=== PATIENT | female | born 1970 | race Two or more races ===

== ENCOUNTER 2022-06-16 13:27 | Emergency (ER) | payer OTHER ==
[~2022-06-16] VITALS: Ht 162.6 cm; Wt 92.5 kg
[2022-06-16] MEDS ORDERED: ZIAC 5-6.25 MG1 EACH (14:29)
== END 2022-06-16 16:48 | disposition home or self-care (01) ==
LOC: ER 13:27 → EDBD 13:32 → ER 13:32
DX: I10 Essential (primary) hypertension (principal)

== ENCOUNTER 2024-09-27 20:46 | Emergency (ER) | payer OTHER ==
[~2024-09-27] VITALS: Ht 165.1 cm; Wt 63.5 kg
[~2024-09-27 20:46] MED LIST: ZIAC 5-6.25 MG1 EACH
[2024-09-28] MEDS ORDERED: ORPHENADRINE CITRATE 30 MG/ML AMPUL IM STA (02:01)
[2024-09-28] MEDS ORDERED: KETOROLAC TROMETHAMINE 30 MG VIAL IV STA (02:01)
[2024-09-28] MEDS ORDERED: KETOROLAC TROMETHAMINE 30 MG VIAL ONE (02:04)
[2024-09-28] MEDS ORDERED: ORPHENADRINE CITRATE 30 MG/ML AMPUL ONE (02:04)
[2024-09-28 02:45] LABS: BASO % 0.3 % (0.1-1.2); EOS # 0.13 (0.04-0.54); EOS % 1.1 % (0.7-7.0); HEMATOCRIT 41.2 % (34.1-44.9); HEMOGLOBIN 14.3 g/dL (11.2-15.7); LYMPH # 3.06 (1.18-3.74); LYMPH % 26.4 % (19.3-53.1); MEAN CORPUSCULAR HEMOGLOBIN 32.4 pg (25.6-32.2); MONO # 0.73 (0.24-0.82); MONO % 6.3 % (4.7-12.5); NEUT # 7.62 (1.56-6.13); NEUT % 65.6 % (34.0-71.1); PLATELET COUNT 330 K/uL (163-369); RED BLOOD COUNT 4.42 M/uL (3.93-5.22); RED CELL DISTRIBUTION WIDTH 12.5 % (11.6-14.4)
[2024-09-28 03:01] LABS: INR 0.96; PROTHROMBIN TIME 10.5 SECONDS (9.0-11.5)
[2024-09-28 03:05] LABS: ALBUMIN 3.8 gm/dL (3.4-5.0); BILIRUBIN TOTAL 0.25 mg/dL (0.3-1.2); CALCIUM 8.9 mg/dL (8.5-10.1); CREATININE SERUM 0.83 mg/dL (0.55-1.02); GFR 71.64; GLOBULINA 3.7 G/DL (2.4-3.5); POTASSIUM 4.56 mEq/L (3.5-5.1); TOTAL PROTEIN 7.5 gm/dL (6.4-8.2)
[2024-09-28] MEDS ORDERED: NAPHAZOLINE HCL/PHENIRAMINE 20 DR/ML DROPS OP ONE (05:12)
[2024-09-28] MEDS ORDERED: NAPHAZOLINE HCL/PHENIRAMINE 20 DR/ML DROPS OP STA (05:14)
== END 2024-09-28 05:40 | disposition home or self-care (01) ==
LOC: ER 21:26
PROVIDERS: General Practice
DX: H57.89 Other specified disorders of eye and adnexa (principal); I10 Essential (primary) hypertension